=== PATIENT | male | born 2000 | race Caucasian/White ===

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

== ENCOUNTER 2019-10-20 13:36 | Emergency (ER) | payer OTHER, BC ==
[~2019-10-20] VITALS: Ht 165.1 cm; Wt 72.7 kg
[2019-10-20 14:45] LABS: BASO % 0.4 % (0.0-1.0); EOS % 0.1 % (0.0-3.0); HEMATOCRIT 53.2 % (42.0-52.0); HEMOGLOBIN 17.5 g/dl (13.5-17.5); LYMPH # 1.3 10^3/uL (1.5-5.0); LYMPH % 12.2 % (24.0-44.0); MEAN CORPUSCULAR HEMOGLOBIN 29.4 pg (27.0-33.0); MEAN CORPUSCULAR HGB CONC 32.9 g/dl (32.0-36.5); MEAN CORPUSCULAR VOLUME 89.4 fl (80.0-96.0); MONO # 0.6 10^3/uL (0.0-0.8); MONO % 5.3 % (0.0-5.0); NEUTROPHILS # 8.8 10^3/uL (1.5-8.5); NEUTROPHILS % 81.6 % (36.0-66.0); PLATELET COUNT, AUTOMATED 258 10^3/uL (150-450); RED BLOOD COUNT 5.95 10^6/uL (4.30-6.10); WHITE BLOOD COUNT 10.8 10^3/uL (4.0-10.0)
[2019-10-20 15:11] LABS: INFLUENZA A AMPLIFICATION NEGATIVE (NEGATIVE); INFLUENZA B AMPLIFICATION NEGATIVE (NEGATIVE)
[2019-10-20] MEDS ORDERED: ISOVUE-370 76% 100ML VIAL (Q9967) As Ordered ONE (15:34)
--- NOTE | 2019-10-20 16:21 | REP ---
Clinical: Right lower quadrant pain. Technique: Axial contrast enhanced images from the lung bases to the pubic symphysis using 100 ml Isovue 370 intravenous contrast material with coronal and sagittal re-formations. Findings: Liver, spleen, pancreas, collapsed gallbladder, bilateral adrenal glands and kidneys are normal. The enteric system is without obstruction or obvious acute inflammatory process. A normal cecum and terminal ileum are identified in the right lower quadrant. The appendix is not definitively identified and no inflammatory stranding is appreciated to suggest acute appendicitis. Few mildly prominent lymph nodes in the right lower quadrant are however identified and may reflect mesenteric adenitis. Pelvis demonstrates normal bladder and age appropriate prostate/seminal vesicles. No ascites. No free air. No retroperitoneal adenopathy. Abdominal aorta and vasculature normal. Musculoskeletal structures are intact. Lung bases are clear. Impression: 1. No definite secondary signs to suggest acute appendicitis. 2. Few lymph nodes in the right lower quadrant may reflect mesenteric adenitis. Electronically Signed by Jeremi Carreon MD 10/20/2019 04:13 P
[2019-10-20] MEDS ORDERED: ONDA4TAB6 PO (16:41)
[2019-10-20 16:51] VITALS: BP 136/72
== END 2019-10-20 16:52 | disposition home or self-care (01) ==
LOC: M ED 13:36
DX: R11.2 Nausea with vomiting, unspecified (principal); R19.7 Diarrhea, unspecified
CPT/HCPCS: 74177; 80047; 85025; 87502; 99284; Q9967

== ENCOUNTER → 2019-10-21 | Outpatient (REF) | payer OTHER, BC ==
[~2019-10-21] MED LIST: ONDA4TAB6 PO
== END ==
LOC: M LAB REF 11:30
PROVIDERS: ATTEND Nurse Practitioner Family
DX: R19.7 Diarrhea, unspecified (principal)

== ENCOUNTER → 2021-08-05 | Outpatient (REF) | payer OTHER, BC | LOC: M LAB REF 15:34 | PROVIDERS: ATTEND Physician Assistant | DX: R05.9 Cough, unspecified (principal) ==

== ENCOUNTER → 2021-11-02 | Outpatient (REF) | payer OTHER, BC ==
[2021-11-02 18:33] LABS: RSV AMPLIFICATION NEGATIVE (NEGATIVE)
== END ==
LOC: M LAB REF 16:40
PROVIDERS: ATTEND Physician Assistant Medical
DX: R50.9 Fever, unspecified (principal); Z20.822 Contact with and (suspected) exposure to COVID-19

== ENCOUNTER 2025-02-11 19:46 | Emergency (ER) | payer BC, OTHER ==
[~2025-02-11] VITALS: Ht 165.1 cm; Wt 82.3 kg
[~2025-02-11 19:46] MED LIST changes: +ONDA-282 PO; -ONDA4TAB6 PO
[2025-02-11] MEDS: IBUPROFEN 800 MG TAB PO ONE (21:44)
[2025-02-11] MEDS ORDERED: IBUP-1022 PO (22:31)
[2025-02-11 22:37] VITALS: BP 123/69; TEMP 98; O2SAT 99
== END 2025-02-11 22:40 | disposition home or self-care (01) ==
LOC: M ED 19:46
DX: S53.401A Unspecified sprain of right elbow, initial encounter (principal); S46.211A Strain of muscle, fascia and tendon of other parts of biceps, right arm, initial encounter; X58.XXXA Exposure to other specified factors, initial encounter; Y92.9 Unspecified place or not applicable; Y93.9 Activity, unspecified; Y99.9 Unspecified external cause status